=== PATIENT | male | born 1995 | race Asian ===

== ENCOUNTER 2017-09-04 17:12 | Emergency (ER) | payer OTHER ==
[~2017-09-04] VITALS: Ht 182.9 cm; Wt 60.4 kg
[2017-09-04 17:25] VITALS: BP 107/74; PULSE 83; TEMP 36.9; O2SAT 98; Ht 182.9 cm; Wt 60.4 kg
--- NOTE | 2017-09-04 17:43 | EMERGENCY ROOM VISIT NOTE ---
ED Visit Note First contact with patient: 17:29 CHIEF COMPLAINT: Can't hear out of right ear HISTORY OF PRESENT ILLNESS: This 21-year-old male presents the ER with chief complaint that he cannot hear out of his right ear. The patient states that this started yesterday. He is unsure if it is related to going to [employer] 2 days ago. The patient denies any ear pain or any recent URI symptoms. He denies any drainage from the ear. REVIEW OF SYSTEMS: 6 system review was performed and was negative unless stated otherwise in history of present illness. PMH: The patient is healthy; asthma. SOCIAL HISTORY: Patient is a [employer] student. The patient admits to tobacco use but denies any alcohol use. PHYSICAL EXAM: Vital Signs: Were reviewed Reviewed Nurse's notes. GEN.: 21-year -old male appears in no acute distress. MENTAL STATUS: Alert and oriented 3. EARS: Left canal is clear without erythema or edema. TMs good light reflex. Right canal with cerumen unable to visualize TM. EMERGENCY DEPARTMENT COURSE: The cerumen was removed with tap water irrigation delivered by an irrigating syringe and gentle curetting. Following this the ear canals were seen to be slightly erythematous but the tympanic membranes were clear and not inflamed. DIAGNOSIS: Cerumen impaction of the right ear canal DISCHARGE INSTRUCTIONS & TREATMENT: Wash the ear canals frequently with water when you bathe in the future. Problem List Medical Problems: (1) No significant past medical history Status: Chronic Current/Historical Medications No Active Prescriptions or Reported Meds Allergies Coded Allergies: No Known Allergies (Unverified , 09/30/15) Vital Signs Date Time Temp Pulse Resp B/P (MAP) Pulse Ox O2 Delivery O2 Flow Rate FiO2 09/04/17 17:25 36.9 83 20 107/74 98 Room Air Departure Information Prescriptions No Active Prescriptions or Reported Meds Referrals No Doctor, Assigned (PCP) Patient Instructions My [facility]
== END 2017-09-04 17:45 | disposition home or self-care (01) ==
LOC: C.EDB 17:14 → C.EDD 17:45
DX: H61.21 Impacted cerumen, right ear (principal); J45.909 Unspecified asthma, uncomplicated; F17.200 Nicotine dependence, unspecified, uncomplicated

== ENCOUNTER 2017-09-06 21:16 | Emergency (ER) | payer OTHER ==
[~2017-09-06] VITALS: Ht 182.9 cm; Wt 60.1 kg
[2017-09-06 21:32] VITALS: TEMP 37.1; Ht 182.9 cm; Wt 60.1 kg
[2017-09-06 22:11] LABS: BASO % 0.3 %; BASO ABS # 0.02 K/uL (0-0.2); COMPLETE YES; EOS % 5.2 %; HEMATOCRIT 44.4 % (42-52); IG% 0.3 %; LYMPH % 40.5 %; LYMPH ABS # 2.48 K/uL (1.2-3.4); MEAN CELL VOLUME 84.9 fL (80-100); MEAN CORPUSCULAR HEMOGLOBIN 30.4 pg (25-34); MEAN CORPUSCULAR HGB CONC 35.8 g/dl (32-36); MEAN PLATELET VOLUME 9.5 fL (7.4-10.4); MONO % 6.4 %; NEUT % 47.3 %; PLATELET COUNT 200 K/uL (130-400); RED BLOOD COUNT 5.23 M/uL (4.7-6.1); WHITE BLOOD COUNT 6.13 K/uL (4.8-10.8)
[2017-09-06 22:25] LABS: INR 1.1 (0.9-1.1); PARTIAL THROMBOPLASTIN RATIO 1.2; PROTHROMBIN TIME (PATIENT) 11.4 SECONDS (9.0-12.0)
[2017-09-06] MEDS ORDERED: [UNRECOGNIZED DRUG - OTHER] TOP (22:30)
[2017-09-06] MEDS ORDERED: [UNRECOGNIZED DRUG - OTHER] TOP (22:30)
[2017-09-06] MEDS ORDERED: LEVO-14 PO (22:30)
[2017-09-06] MEDS ORDERED: [UNRECOGNIZED DRUG - OTHER] PO (22:30)
[2017-09-06 22:40] LABS: ALT/SGPT 16 U/L (12-78); BLOOD UREA NITROGEN 7 mg/dl (7-18); BUN/CREATININE RATIO 7.7 (10-20); C-REACTIVE PROTEIN < 0.29 mg/dl (0-0.29); CALCIUM 8.7 mg/dl (8.5-10.1); CARBON DIOXIDE 29 mmol/L (21-32); CHLORIDE 106 mmol/L (98-107); CREATININE 0.95 mg/dl (0.60-1.40); GLUCOSE 88 mg/dl (70-99); POTASSIUM 3.5 mmol/L (3.5-5.1); SODIUM 139 mmol/L (136-145)
[2017-09-06 22:43] LABS: ALB/GLOB RATIO 1.5 (0.9-2); ALKALINE PHOSPHATASE 65 U/L (45-117); AST/SGOT 8 U/L (15-37)
--- NOTE | 2017-09-06 23:13 | EMERGENCY ROOM VISIT NOTE ---
History First contact with patient: 21:36 Chief Complaint: RASH Stated Complaint: SKIN RASH History of Present Illness The patient is a 21 year old male who presents to the Emergency Room via private vehicle accompanied by female with complaints of "skin rash". The patient states that about a month ago he had a rash on his leg region, but these went away. 2 days ago he developed these red blotch-like rashes on his legs and arms. He denies any recent diet changes, foods, medical problems. He states that he has been trying different medications without relief. He notes some mosquitoes in his house, but no fleas. He does have 2 cats. He is immunized. Review of Systems A complete 6-point Review of Systems was discussed with the patient, with pertinent positives and negatives listed in the History of Present Illness. All remaining Review of Systems questions can be considered negative unless otherwise specified. Past Medical/Surgical History Medical Problems: (1) No significant past medical history Family History No pertinent family history Social History Smoking Status: Current Every Day Smoker Marital Status: single Housing Status: lives with roommate Occupation Status: [employer] student Current/Historical Medications Scheduled [Ebastone], 1 TAB PO DAILY [Fusidic Cream], 1 APPLN TOP PRN [Holometasone], 1 APPLN TOP UD Scheduled PRN Levocetirizine Dihydrochloride (Levocetirizine Dihydrochl), 1 TAB PO DAILY PRN for itching Physical Exam Vital Signs Date Time Temp Pulse Resp B/P (MAP) Pulse Ox O2 Delivery O2 Flow Rate FiO2 09/06/17 23:31 77 18 104/66 98 09/06/17 21:32 37.1 105 18 111/72 100 Room Air Physical Exam VITAL SIGNS - Vital signs and nursing notes were reviewed. Stable. GENERAL -22-year-old male appearing his stated age who is in no acute distress. Communicates well with provider and answers questions appropriately. SKIN - there is an erythematous like rash that are small centimeter like in diameter overlying the patient's distal shins and forearms. This appears to be any exposed regions. There are a few on his inferior right back. There is a small pustular-like Center. No drainage. HEAD - NC/AT. EYES - Sclera anicteric. EARS - No deformities of external structures noted on gross examination bilaterally. Medical Decision & Procedures Laboratory Results 09/06/17 21:55 Red Blood Count 5.23, Mean Corpuscular Volume 84.9, Mean Corpuscular Hemoglobin 30.4, Mean Corpuscular Hemoglobin Concent 35.8, Mean Platelet Volume 9.5, Neutrophils (%) (Auto) 47.3, Lymphocytes (%) (Auto) 40.5, Monocytes (%) (Auto) 6.4, Eosinophils (%) (Auto) 5.2, Basophils (%) (Auto) 0.3, Neutrophils # (Auto) 2.90, Lymphocytes # (Auto) 2.48, Monocytes # (Auto) 0.39, Eosinophils # (Auto) 0.32, Basophils # (Auto) 0.02 09/06/17 21:55 Test 09/06/17 21:55 White Blood Count 6.13 K/uL (4.8-10.8) Red Blood Count 5.23 M/uL (4.7-6.1) Hemoglobin 15.9 g/dL (14.0-18.0) Hematocrit 44.4 % (42-52) Mean Corpuscular Volume 84.9 fL (80-100) Mean Corpuscular Hemoglobin 30.4 pg (25-34) Mean Corpuscular Hemoglobin Concent 35.8 g/dl (32-36) Platelet Count 200 K/uL (130-400) Mean Platelet Volume 9.5 fL (7.4-10.4) Neutrophils (%) (Auto) 47.3 % Lymphocytes (%) (Auto) 40.5 % Monocytes (%) (Auto) 6.4 % Eosinophils (%) (Auto) 5.2 % Basophils (%) (Auto) 0.3 % Neutrophils # (Auto) 2.90 K/uL (1.4-6.5) Lymphocytes # (Auto) 2.48 K/uL (1.2-3.4) Monocytes # (Auto) 0.39 K/uL (0.11-0.59) Eosinophils # (Auto) 0.32 K/uL (0-0.5) Basophils # (Auto) 0.02 K/uL (0-0.2) RDW Standard Deviation 39.3 fL (36.4-46.3) RDW Coefficient of Variation 12.7 % (11.5-14.5) Immature Granulocyte % (Auto) 0.3 % Immature Granulocyte # (Auto) 0.02 K/uL (0.00-0.02) Erythrocyte Sedimentation Rate 2 mm/hr (0-14) Prothrombin Time 11.4 SECONDS (9.0-12.0) Prothromb Time International Ratio 1.1 (0.9-1.1) Activated Partial Thromboplast Time 31.7 SECONDS (21.0-31.0) Partial Thromboplastin Ratio 1.2 Anion Gap 4.0 mmol/L (3-11) Est Creatinine Clear Calc Drug Dose 105.4 ml/min Estimated GFR () 133.0 Estimated GFR (Non- 114.8 BUN/Creatinine Ratio 7.7 (10-20) Calcium Level 8.7 mg/dl (8.5-10.1) Total Bilirubin 0.6 mg/dl (0.2-1) Aspartate Amino Transf (AST/SGOT) 8 U/L (15-37) Alanine Aminotransferase (ALT/SGPT) 16 U/L (12-78) Alkaline Phosphatase 65 U/L (45-117) C-Reactive Protein < 0.29 mg/dl (0-0.29) Total Protein 7.0 gm/dl (6.4-8.2) Albumin 4.2 gm/dl (3.4-5.0) Globulin 2.8 gm/dl (2.5-4.0) Albumin/Globulin Ratio 1.5 (0.9-2) Medications Administered Medications (Trade) Dose Ordered Sig/Karen Route Start Time Stop Time Status Last Admin Dose Admin Diphenhydramine HCl (Benadryl Cap) 25 mg NOW STAT PO 09/06/17 23:19 09/06/17 23:20 DC 09/06/17 23:27 25 MG Medical Decision Patient was seen and evaluated as above. He presents to us today with a skin rash. IV access was initiated, and the above workup was performed. The rash is most likely that from a bug bite or insect, however the radiologist cannot be ruled out therefore basic labs were obtained. No concern of leukocytosis, anemia or metabolic abnormality. C-reactive protein and ESR are normal. I do not suspect Lyme disease. At this time I also had the attending physician evaluate the patient. We are in agreement it is likely bug bites or insects. We will initiate conservative management, he will take Benadryl for the itching , and follow-up with [facility] as well as a records analysis manager if this persists. He is to return with worsening. I do not suspect any emergent underlying process. In evaluation treatment this patient the following differential diagnoses were entertained: Insect bites, vasculitis, Lyme disease, among others. Impression Primary Impression: Rash Departure Information Dispostion Home / Self-Care Condition GOOD Referrals [facility] (PCP) Janak Millard M.D. Forms WORK / SCHOOL INSTRUCTIONS, HOME CARE DOCUMENTATION FORM, IMPORTANT VISIT INFORMATION Patient Instructions My [facility] [address] Additional Instructions You have been treated in the Emergency Department your rash. Laboratory results a have ruled out any emergent causes for your rash which would warrant admission or surgery. Drink plenty of water and stay well hydrated. Benadryl 25mg every 6 hours as needed for itching. This is over the counter and can be purchased at any local pharmacy without prescription. As with any trip to the Emergency Department, you should follow-up with your Primary Care Provider from today's visit. Please follow with [facility] on This. Please also call the doctor listed within this paperwork who is a records analysis manager to schedule follow-up. Return to the emergency department if your symptoms persist despite treatment plan outlined above or if the following symptoms occur: increased fevers, chills , worsening nausea/vomiting, blood in your stool or urine. Please return with any new/concerning symptoms.
[2017-09-06 23:31] VITALS: BP 104/66; PULSE 77; O2SAT 98
== END 2017-09-06 23:31 | disposition home or self-care (01) ==
LOC: C.EDB 21:18 → C.EDD 23:31
DX: R21 Rash and other nonspecific skin eruption (principal); F17.210 Nicotine dependence, cigarettes, uncomplicated